=== PATIENT | male | born 1955 | race Caucasian/White ===

== ENCOUNTER 2019-07-10 11:00 | Day surgery (SDC) | payer BC ==
[~2019-07-10] VITALS: Ht 185.4 cm; Wt 109.2 kg
[~2019-07-10 11:00] MED LIST: AMLO5 PO; ASPI325EC; ASPI81CH PO; ASPI81EC PO; ATOR20 PO; Aspir 8181 MG PO; CIPR500 PO; DIAZ2 PO; DIAZ5 PO; Diclofenac Pota50 MG PO; FINA5 PO; HYDACE5 PO; HYDR1TAB94 PO; IBUP200; JANUMET XR 1001 EACH PO; LOVA20 PO; Lipitor20 MG PO; NITR100 PO; OLME20 PO; OXYACE5T PO; OXYB5 PO; Pyridium200 MG PO; RXOXYACE PO; TRAM50 PO; ZOLP10 PO
--- NOTE | 2019-07-10 13:32 | NUR ---
07/10/19 1332 Delmy Lino PT AROUSABLE TO TOUCH AT THIS TIME, PAR SCORE 5
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
== END 2019-07-10 15:34 | disposition home or self-care (01) ==
LOC: ORSCSDS 11:00
PROVIDERS: Orthopaedic Surgery
PROC: 0SBC4ZZ Excision of Right Knee Joint, Percutaneous Endoscopic Approach (ICD-10-PCS; principal; 2019-07-10 12:15)
DX: S83.241A Other tear of medial meniscus, current injury, right knee, initial encounter (principal); I10 Essential (primary) hypertension; G47.33 Obstructive sleep apnea (adult) (pediatric); E11.9 Type 2 diabetes mellitus without complications; Z87.891 Personal history of nicotine dependence; Z79.899 Other long term (current) drug therapy
CPT/HCPCS: 82947; A9270-GY; J0690; J2250; J2704; J3010; J7120

== ENCOUNTER 2020-06-09 22:16 | Emergency (ER) | payer BC ==
[~2020-06-09] VITALS: Ht 185.4 cm; Wt 102.1 kg
[2020-06-10 03:18] LABS: BASOPHILS ABSOLUTE AUTO 0.04 K/mm3 (0.00-0.23); BASOPHILS PERCENT AUTO 1 % (0-2); EOSINOPHILS ABSOLUTE AUTO 0.09 K/mm3 (0.00-0.68); EOSINOPHILS PERCENT AUTO 2 % (0-6); Hematocrit 44.2 % (37.0-53.0); Hemoglobin 14.6 g/dL (13.5-17.5); IMMATURE GRAN ABSOLUTE AUTO 0.01 K/mm3 (0.00-0.10); IMMATURE GRAN PERCENT AUTO 0 % (0-1); LYMPHOCYTES PERCENT AUTO 23 % (21-46); MONOCYTES ABSOLUTE AUTO 0.45 K/mm3 (0.16-1.47); MONOCYTES PERCENT AUTO 9 % (4-13); Mean Corpuscular HGB 32.2 pg (26.0-34.0); Mean Corpuscular Volume 98 fL (80-100); Mean Platelet Volume 10.3 fL (9.1-12.4); NEUTROPHILS ABSOLUTE AUTO 3.34 K/mm3 (1.96-9.15); NEUTROPHILS PERCENT AUTO 65 % (41-73); Platelet Count 177 K/mm3 (150-400); RDW Coefficient Variation 12.6 % (11.7-14.2); RDW Standard Deviation 45.5 fL (35.1-46.3); Red Blood Cell Count 4.53 M/mm3 (4.30-5.90); White Blood Cell Count 5.13 K/mm3 (4.00-11.30)
[2020-06-10 03:39] LABS: Alanine Aminotransfer (ALT/SGP 48 U/L (12-78); Albumin, Blood 3.8 g/dL (3.4-5.0); Albumin/Globulin Ratio 1.1 (0.8-1.8); Alk Phos 90 U/L (50-136); Anion Gap 5 mmol/L (6-16); Aspartate Aminotrans (AST/SGOT 19 U/L (12-37); Bilirubin, Total 0.5 mg/dL (0.1-1.0); Blood Urea Nitrogen 25 mg/dL (8-24); Bun/Creatinine Ratio 19.8 (12.0-20.0); CO2, Blood 26 mmol/L (21-32); CPK Creatine Kinase 161 U/L (39-308); Calcium, Blood 9.1 mg/dL (8.5-10.1); Chloride, Blood 107 mmol/L (98-108); Creatinine, Blood 1.26 mg/dL (0.60-1.20); Globulin, Blood 3.4 g/dL (2.2-4.0); Glomerular Filtration Rate >60 (60-); Glucose, Blood 102 mg/dL (70-99); Potassium, Blood 4.2 mmol/L (3.5-5.5); Sodium, Blood 138 mmol/L (136-145); Total Protein, Blood 7.2 g/dL (6.4-8.2); Troponin I <0.015 ng/mL (0.000-0.040)
== END 2020-06-10 04:10 | disposition home or self-care (01) ==
LOC: ER 22:16
PROVIDERS: Emergency Medicine
DX: R55 Syncope and collapse (principal); I25.10 Atherosclerotic heart disease of native coronary artery without angina pectoris; Z88.8 Allergy status to other drugs, medicaments and biological substances; Z79.82 Long term (current) use of aspirin; Z79.84 Long term (current) use of oral hypoglycemic drugs; Z87.891 Personal history of nicotine dependence; Z79.899 Other long term (current) drug therapy
CPT/HCPCS: 80053; 82550; 84484; 85025; 93005; 93010; 96360; 99284-25; J7030

== ENCOUNTER 2022-05-19 15:26 | Emergency (ER) | payer MEDICARE ==
[~2022-05-19] VITALS: Ht 185.4 cm; Wt 111.6 kg
[2022-05-19 16:13] LABS: BASOPHILS ABSOLUTE AUTO 0.03 K/mm3 (0.00-0.23); BASOPHILS PERCENT AUTO 1 % (0-2); EOSINOPHILS ABSOLUTE AUTO 0.04 K/mm3 (0.00-0.68); EOSINOPHILS PERCENT AUTO 1 % (0-6); Hemoglobin 14.4 g/dL (13.5-17.5); IMMATURE GRAN ABSOLUTE AUTO 0.03 K/mm3 (0.00-0.10); IMMATURE GRAN PERCENT AUTO 1 % (0-1); LYMPHOCYTES ABSOLUTE AUTO 0.74 K/mm3 (0.84-5.20); LYMPHOCYTES PERCENT AUTO 12 % (21-46); MONOCYTES ABSOLUTE AUTO 0.41 K/mm3 (0.16-1.47); MONOCYTES PERCENT AUTO 7 % (4-13); Mean Corpuscular HGB 32.7 pg (26.0-34.0); Mean Corpuscular HGB Conc 34.3 g/dL (31.5-36.5); Mean Corpuscular Volume 96 fL (80-100); Mean Platelet Volume 10.1 fL (9.1-12.4); NEUTROPHILS PERCENT AUTO 80 % (41-73); Platelet Count 191 K/mm3 (150-400); RDW Coefficient Variation 12.3 % (11.7-14.2); RDW Standard Deviation 43.8 fL (35.1-46.3); White Blood Cell Count 6.15 K/mm3 (4.00-11.30)
[2022-05-19 16:28] LABS: Albumin/Globulin Ratio 1.3 (0.8-1.8); Bilirubin, Total 0.4 mg/dL (0.1-1.0); Bun/Creatinine Ratio 20.6 (12.0-20.0); Calcium, Blood 9.1 mg/dL (8.5-10.1); Creatinine, Blood 1.36 mg/dL (0.60-1.20); Globulin, Blood 3.1 g/dL (2.2-4.0); Potassium, Blood 4.4 mmol/L (3.5-5.5); Total Protein, Blood 7.1 g/dL (6.4-8.2)
[2022-05-19] MEDS ORDERED: COMBIVENT RESPIM4 G1 INH (18:36)
[2022-05-19] MEDS ORDERED: JANUMET PO (18:37)
== END 2022-05-19 19:22 | disposition home or self-care (01) ==
LOC: ER 15:26
PROVIDERS: Physician Assistant
DX: R07.9 Chest pain, unspecified (principal); K21.9 Gastro-esophageal reflux disease without esophagitis; I25.10 Atherosclerotic heart disease of native coronary artery without angina pectoris; E11.9 Type 2 diabetes mellitus without complications; I10 Essential (primary) hypertension; F17.210 Nicotine dependence, cigarettes, uncomplicated; Z79.82 Long term (current) use of aspirin; Z79.899 Other long term (current) drug therapy; Z88.8 Allergy status to other drugs, medicaments and biological substances
CPT/HCPCS: 36415; 71045; 80053; 83880; 84484; 85025; 93005; 93010

== ENCOUNTER 2022-07-21 21:28 | Emergency (ER) | payer MEDICARE ==
[~2022-07-21] VITALS: Ht 185.4 cm; Wt 110.7 kg
[~2022-07-21 21:28] MED LIST changes: +COMBIVENT RESPIM4 G1 INH; +JANUMET PO
[2022-07-21 22:10] LABS: BASOPHILS ABSOLUTE AUTO 0.04 K/mm3 (0.00-0.23); BASOPHILS PERCENT AUTO 1 % (0-2); EOSINOPHILS ABSOLUTE AUTO 0.07 K/mm3 (0.00-0.68); EOSINOPHILS PERCENT AUTO 1 % (0-6); Hematocrit 43.8 % (37.0-53.0); Hemoglobin 15.3 g/dL (13.5-17.5); IMMATURE GRAN ABSOLUTE AUTO 0.03 K/mm3 (0.00-0.10); IMMATURE GRAN PERCENT AUTO 0 % (0-1); LYMPHOCYTES ABSOLUTE AUTO 1.04 K/mm3 (0.84-5.20); LYMPHOCYTES PERCENT AUTO 15 % (21-46); MONOCYTES ABSOLUTE AUTO 0.59 K/mm3 (0.16-1.47); MONOCYTES PERCENT AUTO 9 % (4-13); Mean Corpuscular HGB 33.1 pg (26.0-34.0); Mean Corpuscular HGB Conc 34.9 g/dL (31.5-36.5); Mean Corpuscular Volume 95 fL (80-100); Mean Platelet Volume 9.8 fL (9.1-12.4); NEUTROPHILS ABSOLUTE AUTO 5.09 K/mm3 (1.96-9.15); NEUTROPHILS PERCENT AUTO 74 % (41-73); Platelet Count 190 K/mm3 (150-400); RDW Coefficient Variation 12.5 % (11.7-14.2); RDW Standard Deviation 43.2 fL (35.1-46.3); Red Blood Cell Count 4.62 M/mm3 (4.30-5.90); White Blood Cell Count 6.86 K/mm3 (4.00-11.30)
[2022-07-21 22:28] LABS: Albumin, Blood 3.9 g/dL (3.4-5.0); Albumin/Globulin Ratio 1.1 (0.8-1.8); Bilirubin, Total 0.4 mg/dL (0.1-1.0); Bun/Creatinine Ratio 22.1 (12.0-20.0); Calcium, Blood 9.7 mg/dL (8.5-10.1); Creatinine, Blood 1.13 mg/dL (0.60-1.20); Globulin, Blood 3.5 g/dL (2.2-4.0); Total Protein, Blood 7.4 g/dL (6.4-8.2)
[2022-07-21] MEDS ORDERED: CIME400 PO (22:57)
== END 2022-07-21 23:08 | disposition home or self-care (01) ==
LOC: ER 21:28
PROVIDERS: Physician Assistant
DX: K21.9 Gastro-esophageal reflux disease without esophagitis (principal); I10 Essential (primary) hypertension; E11.9 Type 2 diabetes mellitus without complications; I25.10 Atherosclerotic heart disease of native coronary artery without angina pectoris; Z87.891 Personal history of nicotine dependence; Z88.8 Allergy status to other drugs, medicaments and biological substances; Z79.899 Other long term (current) drug therapy; Z79.82 Long term (current) use of aspirin
CPT/HCPCS: 36415; 71046; 80053; 83690; 83880; 84484; 85025; 93005; 93010; 99284-25

== ENCOUNTER 2022-08-07 07:28 | Day surgery (SDC) | payer MEDICARE ==
[~2022-08-07] VITALS: Ht 185.4 cm; Wt 107.6 kg
[~2022-08-07 07:28] MED LIST changes: +CIME400 PO; +TOUJEO SOL300 UNIT/2 SQ
--- NOTE | 2022-08-07 09:19 | NUR ---
08/07/22 0919 Galindo Goddard HISTORY, CHART, MEDICATIONS AND ALLERGIES REVIEWED BEFORE START OF PROCEDURE. PATIENT CONFIRMS NPO STATUS AND AGREES WITH SCHEDULED PROCEDURE. 3-LEAD EKG REVIEWED WITH PHYSICIAN PRIOR TO START OF PROCEDURE. MONITOR INTACT WITH CONTINUOUS PULSE OXIMETRY,CAPNOGRAPHY, 3-LEAD EKG, INTERMITTENT BP. SUPPLEMENTAL O2 TO BE TITRATED THROUGHOUT PROCEDURE TO MAINTAIN O2 SATURATION ABOVE 90%. PATIENT DETERMINED TO BE ASA APPROPRIATE FOR PROPOFOL SEDATION PRIOR TO START OF PROCEDURE BY DR. ANDREW.
--- NOTE | 2022-08-07 10:01 | NUR ---
Discharge instructions reviewed with patient. Patient verbalizes understanding. Copy given to patient to take home. Discharged via wheelchair to private car for ride home.
== END 2022-08-07 10:00 | disposition home or self-care (01) ==
LOC: ORSCMMR 07:28 → ORD 09:30 → ORSCMMR 10:00
PROVIDERS: Internal Medicine Gastroenterology
PROC: 0DB68ZX Excision of Stomach, Via Natural or Artificial Opening Endoscopic, Diagnostic (ICD-10-PCS; principal; 2022-08-07 08:30)
PROC: 0DB48ZX Excision of Esophagogastric Junction, Via Natural or Artificial Opening Endoscopic, Diagnostic (ICD-10-PCS; principal; 2022-08-07 08:30)
PROC: 0DB98ZX Excision of Duodenum, Via Natural or Artificial Opening Endoscopic, Diagnostic (ICD-10-PCS; principal; 2022-08-07 08:30)
DX: R10.13 Epigastric pain (principal); E11.9 Type 2 diabetes mellitus without complications; I10 Essential (primary) hypertension; K29.70 Gastritis, unspecified, without bleeding; K21.9 Gastro-esophageal reflux disease without esophagitis; E78.00 Pure hypercholesterolemia, unspecified; E66.9 Obesity, unspecified; Z68.30 Body mass index [BMI] 30.0-30.9, adult; Z79.82 Long term (current) use of aspirin; Z79.4 Long term (current) use of insulin; Z79.85 Long-term (current) use of injectable non-insulin antidiabetic drugs; Z79.899 Other long term (current) drug therapy
CPT/HCPCS: 82947; 88305; 88342; A9270; J2704; J7120

== ENCOUNTER 2022-08-10 18:37 | Emergency (ER) | payer MEDICARE ==
[~2022-08-10] VITALS: Ht 185.4 cm; Wt 108.9 kg
[2022-08-10 19:13] LABS: BASOPHILS ABSOLUTE AUTO 0.04 K/mm3 (0.00-0.23); BASOPHILS PERCENT AUTO 1 % (0-2); EOSINOPHILS ABSOLUTE AUTO 0.11 K/mm3 (0.00-0.68); EOSINOPHILS PERCENT AUTO 2 % (0-6); Hematocrit 43.7 % (37.0-53.0); IMMATURE GRAN ABSOLUTE AUTO 0.03 K/mm3 (0.00-0.10); IMMATURE GRAN PERCENT AUTO 1 % (0-1); LYMPHOCYTES ABSOLUTE AUTO 0.97 K/mm3 (0.84-5.20); LYMPHOCYTES PERCENT AUTO 19 % (21-46); MONOCYTES ABSOLUTE AUTO 0.49 K/mm3 (0.16-1.47); MONOCYTES PERCENT AUTO 10 % (4-13); Mean Corpuscular HGB 32.8 pg (26.0-34.0); Mean Corpuscular HGB Conc 34.3 g/dL (31.5-36.5); Mean Corpuscular Volume 96 fL (80-100); Mean Platelet Volume 9.9 fL (9.1-12.4); NEUTROPHILS ABSOLUTE AUTO 3.49 K/mm3 (1.96-9.15); NEUTROPHILS PERCENT AUTO 68 % (41-73); Platelet Count 166 K/mm3 (150-400); RDW Coefficient Variation 12.1 % (11.7-14.2); RDW Standard Deviation 42.5 fL (35.1-46.3); Red Blood Cell Count 4.57 M/mm3 (4.30-5.90); White Blood Cell Count 5.13 K/mm3 (4.00-11.30)
[2022-08-10 19:32] LABS: Albumin/Globulin Ratio 1.2 (0.8-1.8); Bilirubin, Total 0.5 mg/dL (0.1-1.0); Bun/Creatinine Ratio 16.2 (12.0-20.0); Calcium, Blood 9.1 mg/dL (8.5-10.1); Creatinine, Blood 1.17 mg/dL (0.60-1.20); Globulin, Blood 3.3 g/dL (2.2-4.0); Potassium, Blood 4.3 mmol/L (3.5-5.5); Total Protein, Blood 7.3 g/dL (6.4-8.2)
== END 2022-08-10 22:57 | disposition home or self-care (01) ==
LOC: ER 18:37
PROVIDERS: Anesthesiology
DX: G45.9 Transient cerebral ischemic attack, unspecified (principal); I25.10 Atherosclerotic heart disease of native coronary artery without angina pectoris; E11.9 Type 2 diabetes mellitus without complications; I10 Essential (primary) hypertension; Z88.8 Allergy status to other drugs, medicaments and biological substances; Z79.899 Other long term (current) drug therapy; Z79.4 Long term (current) use of insulin; Z79.82 Long term (current) use of aspirin; Z87.891 Personal history of nicotine dependence
CPT/HCPCS: 36415; 70450; 80053; 85025; 93005; 93010

== ENCOUNTER 2022-08-12 13:24 | Emergency (ER) | payer MEDICARE ==
[~2022-08-12] VITALS: Ht 185.4 cm; Wt 106.6 kg
== END 2022-08-12 16:19 | disposition home or self-care (01) ==
LOC: ER 13:24
DX: M54.10 Radiculopathy, site unspecified (principal); F41.9 Anxiety disorder, unspecified; I10 Essential (primary) hypertension; E11.9 Type 2 diabetes mellitus without complications; I25.10 Atherosclerotic heart disease of native coronary artery without angina pectoris; F17.210 Nicotine dependence, cigarettes, uncomplicated; Z88.8 Allergy status to other drugs, medicaments and biological substances; Z79.899 Other long term (current) drug therapy; Z79.82 Long term (current) use of aspirin; Z79.4 Long term (current) use of insulin
CPT/HCPCS: 99283

== ENCOUNTER 2024-02-06 08:34 | Day surgery (SDC) | payer MEDICARE ==
[~2024-02-06] VITALS: Ht 185.4 cm; Wt 117.0 kg
[2024-02-06] VITALS (21 sets, daily range): BP systolic 80–161; BP diastolic 57–90
[~2024-02-06 08:34] MED LIST changes: +ESCI10 PO; +Lactated Ringer's 1,000 ML IV SCH; +METF500 PO; +MULVITA PO; +Vitamin B Comple1 EA PO
--- NOTE | 2024-02-06 09:20 | NUR ---
History, Chart, Medications and Allergies reviewed before start of procedure. Patient up to Ambulate independently. Gait steady. Pre-Op teaching done. Pt verbalizes understanding. Patient confirms NPO status and agrees with scheduled surgery. Patient states colon prep results light yellow without sediment. Patient States Post-Procedure ride home has been arranged.
[2024-02-06] MEDS ORDERED: propofoL 40 ML IV ONE (09:48)
--- NOTE | 2024-02-06 09:57 | NUR ---
02/06/24 0957 Galindo Goddard HISTORY, CHART, MEDICATIONS AND ALLERGIES REVIEWED BEFORE START OF PROCEDURE. PATIENT CONFIRMS NPO STATUS AND AGREES WITH SCHEDULED PROCEDURE. 3-LEAD EKG REVIEWED WITH PHYSICIAN PRIOR TO START OF PROCEDURE. MONITOR INTACT WITH CONTINUOUS PULSE OXIMETRY,CAPNOGRAPHY, 3-LEAD EKG, INTERMITTENT BP. SUPPLEMENTAL O2 TO BE TITRATED THROUGHOUT PROCEDURE TO MAINTAIN O2 SATURATION ABOVE 90%. PATIENT DETERMINED TO BE ASA APPROPRIATE FOR PROPOFOL SEDATION PRIOR TO START OF PROCEDURE BY DR. ANDREW.
== END 2024-02-06 11:00 | disposition home or self-care (01) ==
LOC: ORSCMMR 08:34 → ORD 09:30 → ORSCMMR 11:00
PROVIDERS: Internal Medicine Gastroenterology
PROC: 0DBN8ZX Excision of Sigmoid Colon, Via Natural or Artificial Opening Endoscopic, Diagnostic (ICD-10-PCS; principal; 2024-02-06 09:30)
PROC: 0DBK8ZX Excision of Ascending Colon, Via Natural or Artificial Opening Endoscopic, Diagnostic (ICD-10-PCS; principal; 2024-02-06 09:30)
DX: K62.5 Hemorrhage of anus and rectum (principal); K63.5 Polyp of colon; D12.2 Benign neoplasm of ascending colon; I10 Essential (primary) hypertension; E11.9 Type 2 diabetes mellitus without complications; F41.9 Anxiety disorder, unspecified; E78.00 Pure hypercholesterolemia, unspecified; Z79.82 Long term (current) use of aspirin; Z79.85 Long-term (current) use of injectable non-insulin antidiabetic drugs; Z79.84 Long term (current) use of oral hypoglycemic drugs; Z79.899 Other long term (current) drug therapy
CPT/HCPCS: 82947; 88305; J2704; J7120

== ENCOUNTER 2025-02-11 09:31 | Day surgery (SDC) | payer OTHER ==
[~2025-02-11] VITALS: Ht 188 cm; Wt 115.2 kg
[~2025-02-11 09:31] MED LIST changes: +Balanced Salt Epinephrine Irrigation Solution 500 mL IR SCH; +Diazepam 5 MG Tab PO PRN; +Diazepam 5 MG Tab PO SCH; -Lactated Ringer's 1,000 ML IV SCH; +Lidocaine HCl/Pf 1% 5 ML VIAL XX SCH; +Moxifloxacin HCL 0.5 MG/0.1 ML 0.4MLSYR LEFTEYE SCH; +Ondansetron 4 MG SoluTab MM PRN; +PHENYLEPHRINE\\TROPICAMIDE\\TETRACAINE OPHTHALMIC DILATING SOLN LEFTEYE PRN; +Povidone-Iodine 450 DROP/30 ML Solution LEFTEYE SCH; +Povidone-Iodine 450 DROP/30 ML Solution ONE; +Tetracaine HCl/Pf 0.5% Opth Soln 4 ml ONE; +Triamcinolone Inj Susp 40 MG / ML 1ML Vial INJ SCH; +Triamcinolone Inj Susp 40 MG / ML 1ML Vial ONE
[2025-02-11] MEDS ORDERED: Diazepam 10 MG Tab ONE (09:39)
--- NOTE | 2025-02-11 09:51 | NUR ---
02/11/25 0950 Genesis Carlson PT STATES ANXIETY IS 0/10 BEFORE PO VALIUM 10MG. PT ON CONT PULSE OX. CALL LIGHT IN HAND
[2025-02-11] MEDS ORDERED: PAXLOVID 300-11 EAC1 (09:52)
[2025-02-11] MEDS ORDERED: OZEMPIC1 MG/0.72 (09:52)
--- NOTE | 2025-02-11 10:51 | NUR ---
02/11/25 1051 Laura Frazier 1046 BP 132/77, HR 67, O2% 96 RA, 16 RESP
[2025-02-11 11:31] VITALS: BP 128/72
== END 2025-02-11 11:27 | disposition home or self-care (01) ==
LOC: ORSCSDS 09:31
PROVIDERS: Ophthalmology
PROC: 08RK3JZ Replacement of Left Lens with Synthetic Substitute, Percutaneous Approach (ICD-10-PCS; principal; 2025-02-11 11:00)
DX: H25.813 Combined forms of age-related cataract, bilateral (principal); E11.36 Type 2 diabetes mellitus with diabetic cataract; Z79.85 Long-term (current) use of injectable non-insulin antidiabetic drugs; Z79.82 Long term (current) use of aspirin; Z79.899 Other long term (current) drug therapy
CPT/HCPCS: A9270; J3301; V2632

== ENCOUNTER 2025-02-18 09:34 | Day surgery (SDC) | payer OTHER ==
[~2025-02-18] VITALS: Ht 185.4 cm; Wt 115.4 kg
[~2025-02-18 09:34] MED LIST changes: -Moxifloxacin HCL 0.5 MG/0.1 ML 0.4MLSYR LEFTEYE SCH; +Moxifloxacin HCL 0.5 MG/0.1 ML 0.4MLSYR RIGHTEYE SCH; +OZEMPIC1 MG/0.72; +PAXLOVID 300-11 EAC1; -PHENYLEPHRINE\\TROPICAMIDE\\TETRACAINE OPHTHALMIC DILATING SOLN LEFTEYE PRN; +PHENYLEPHRINE\\TROPICAMIDE\\TETRACAINE OPHTHALMIC DILATING SOLN RIGHTEYE PRN; -Povidone-Iodine 450 DROP/30 ML Solution LEFTEYE SCH; +Povidone-Iodine 450 DROP/30 ML Solution RIGHTEYE SCH
[2025-02-18] MEDS ORDERED: Diazepam 10 MG Tab ONE (09:45)
--- NOTE | 2025-02-18 10:17 | NUR ---
02/18/25 1017 JENS SALAZAR RESTING ON GURNEY, CALL LIGHT IN HAND, RAILS UP, BRAKES LOCKED
--- NOTE | 2025-02-18 11:15 | NUR ---
02/18/25 1114 Nataliya Martin BP-135/77 P-61 [id number]% 10L BLOW BY O2
[2025-02-18 11:52] VITALS: BP 129/75
== END 2025-02-18 11:45 | disposition home or self-care (01) ==
LOC: ORSCSDS 09:34
PROVIDERS: Ophthalmology
PROC: 08RJ3JZ Replacement of Right Lens with Synthetic Substitute, Percutaneous Approach (ICD-10-PCS; principal; 2025-02-18 11:00)
DX: E11.36 Type 2 diabetes mellitus with diabetic cataract (principal); H25.811 Combined forms of age-related cataract, right eye; Z96.1 Presence of intraocular lens; Z79.899 Other long term (current) drug therapy; Z79.4 Long term (current) use of insulin; Z79.82 Long term (current) use of aspirin; Z79.85 Long-term (current) use of injectable non-insulin antidiabetic drugs; Z79.84 Long term (current) use of oral hypoglycemic drugs
CPT/HCPCS: A9270; J3301; V2632

== ENCOUNTER → 2025-02-24 | Outpatient (CLI) | payer OTHER ==
[~2025-02-24] MED LIST changes: -Balanced Salt Epinephrine Irrigation Solution 500 mL IR SCH; -Diazepam 5 MG Tab PO PRN; -Diazepam 5 MG Tab PO SCH; -Lidocaine HCl/Pf 1% 5 ML VIAL XX SCH; -Moxifloxacin HCL 0.5 MG/0.1 ML 0.4MLSYR RIGHTEYE SCH; -Ondansetron 4 MG SoluTab MM PRN; -PHENYLEPHRINE\\TROPICAMIDE\\TETRACAINE OPHTHALMIC DILATING SOLN RIGHTEYE PRN; -Povidone-Iodine 450 DROP/30 ML Solution ONE; -Povidone-Iodine 450 DROP/30 ML Solution RIGHTEYE SCH; -Tetracaine HCl/Pf 0.5% Opth Soln 4 ml ONE; -Triamcinolone Inj Susp 40 MG / ML 1ML Vial INJ SCH; -Triamcinolone Inj Susp 40 MG / ML 1ML Vial ONE
[2025-02-24 13:43] LABS: BASOPHILS ABSOLUTE AUTO 0.07 K/mm3 (0.00-0.23); BASOPHILS PERCENT AUTO 1 % (0-2); EOSINOPHILS PERCENT AUTO 1 % (0-6); Hematocrit 47.1 % (37.0-53.0); Hemoglobin 16.2 g/dL (13.5-17.5); IMMATURE GRAN ABSOLUTE AUTO 0.04 K/mm3 (0.00-0.10); IMMATURE GRAN PERCENT AUTO 0 % (0-1); LYMPHOCYTES ABSOLUTE AUTO 0.66 K/mm3 (0.84-5.20); LYMPHOCYTES PERCENT AUTO 6 % (21-46); MONOCYTES ABSOLUTE AUTO 0.62 K/mm3 (0.16-1.47); MONOCYTES PERCENT AUTO 6 % (4-13); Mean Corpuscular HGB Conc 34.4 g/dL (31.5-36.5); Mean Corpuscular Volume 96 fL (80-100); NEUTROPHILS ABSOLUTE AUTO 9.62 K/mm3 (1.96-9.15); NEUTROPHILS PERCENT AUTO 87 % (41-73); Platelet Count 170 K/mm3 (150-400); RDW Coefficient Variation 12.8 % (11.7-14.2); RDW Standard Deviation 45.2 fL (35.1-46.3); Red Blood Cell Count 4.91 M/mm3 (4.30-5.90); White Blood Cell Count 11.11 K/mm3 (4.00-11.30)
[2025-02-24 13:53] LABS: Albumin, Blood 4.5 g/dL (3.4-5.0); Albumin/Globulin Ratio 1.1 (0.8-1.8); Bilirubin, Total 0.8 mg/dL (0.1-1.0); Bun/Creatinine Ratio 19.2 (12.0-20.0); Calcium, Blood 9.4 mg/dL (8.5-10.1); Creatinine, Blood 1.77 mg/dL (0.60-1.20); Globulin, Blood 4.1 g/dL (2.2-4.0); Potassium, Blood 5.1 mmol/L (3.5-5.5); Total Protein, Blood 8.6 g/dL (6.4-8.2)
== END ==
LOC: LAB 13:38 → LAB SHORT 13:38
PROVIDERS: Family Medicine
DX: N39.0 Urinary tract infection, site not specified (principal); R31.9 Hematuria, unspecified
CPT/HCPCS: 80053; 85025; 87077; 87086; 87186

== ENCOUNTER 2025-05-10 09:45 | Day surgery (SDC) | payer OTHER ==
[~2025-05-10] VITALS: Ht 186 cm; Wt 112.9 kg
[2025-05-10] VITALS (13 sets, daily range): BP systolic 81–147; BP diastolic 55–87
[~2025-05-10 09:45] MED LIST changes: +LORA10ER PO
--- NOTE | 2025-05-10 11:10 | NUR ---
Ambulatory in Day Surgery History, Chart, Medications and Allergies reviewed before start of procedure.Patient states colon prep results clear. Lungs clear T/O to Auscultation. Patient States Post-Procedure ride home has been arranged.
--- NOTE | 2025-05-10 11:20 | NUR ---
05/10/25 1120 Erasmo Prabhakar CONFIRMED AND REVIEWED H&P, MEDCICATIONS, ALLERGIES, MEDICAL HISTORY, RESPIRATORY HISTORY, VITAL SIGNS, 3-LEAD EKG, CONSENTS, AND PHYSICIAN ORDERS. PATIENT CONFIRMS NPO STATUS AND AGREES WITH SCHEDULED PROCEDURE. MONITOR INTACT WITH CONTINUOUS PULSE OXIMETRY, CAPNOGRAPHY, 3-LEAD EKG, INTERMITTENT BP. SUPPLEMENTAL O2 TO BE TITRATED THROUGHOUT PROCEDURE TO MAINTAIN O2 SATURATION ABOVE 90%. PATIENT DETERMINED TO BE ASA APPROPRIATE FOR PROPOFOL SEDATION PRIOR TO START OF PROCEDURE BY DR. ANDREW
[2025-05-10] MEDS ORDERED: Midazolam HCl 1MG / ML 2ML Vial ONE (11:29)
--- NOTE | 2025-05-10 11:56 | NUR ---
Discharge instructions reviewed with patient. Patient verbalizes understanding. Copy given to patient to take home. Discharged via wheelchair to private car for ride home.
== END 2025-05-10 12:21 | disposition home or self-care (01) ==
LOC: ORSCMMR 09:45 → ORD 10:30 → ORSCMMR 12:21
PROVIDERS: Internal Medicine Gastroenterology
PROC: 0DBP8ZX Excision of Rectum, Via Natural or Artificial Opening Endoscopic, Diagnostic (ICD-10-PCS; principal; 2025-05-10 10:30)
DX: D12.4 Benign neoplasm of descending colon (principal); K62.1 Rectal polyp; Z80.0 Family history of malignant neoplasm of digestive organs; F41.9 Anxiety disorder, unspecified; N40.0 Benign prostatic hyperplasia without lower urinary tract symptoms; E11.9 Type 2 diabetes mellitus without complications; I10 Essential (primary) hypertension; E78.00 Pure hypercholesterolemia, unspecified; Z79.82 Long term (current) use of aspirin; Z79.84 Long term (current) use of oral hypoglycemic drugs; Z79.85 Long-term (current) use of injectable non-insulin antidiabetic drugs; Z79.899 Other long term (current) drug therapy
CPT/HCPCS: 82947; 88305; J2250; J2704; J7120

== ENCOUNTER 2025-09-29 16:47 | Observation (INO) | payer OTHER ==
[~2025-09-29] VITALS: Ht 185.4 cm; Wt 110.8 kg
[~2025-09-29 16:47] MED LIST changes: +AMOCLA875 PO
[2025-09-29 17:43] LABS: Source, Urine Clean Catch
[2025-09-29 17:48] LABS: Color, Urine Red (P-Yellow); Glucose Qualitative, Urine Neg (Neg); Ketones, Urine 2+ (Neg); Leukocyte Esterase, Urine Neg (Neg); Protein, Urine 4+ (Neg); Specific Gravity, Urine 1.015 (1.003-1.022); Urobilinogen, Urine NORM (Normal)
[2025-09-29 17:48] LABS: BASOPHILS ABSOLUTE AUTO 0.05 K/mm3 (0.00-0.23); BASOPHILS PERCENT AUTO 1 % (0-2); EOSINOPHILS ABSOLUTE AUTO 0.12 K/mm3 (0.00-0.68); EOSINOPHILS PERCENT AUTO 2 % (0-6); Hematocrit 49.9 % (37.0-53.0); Hemoglobin 16.8 g/dL (13.5-17.5); IMMATURE GRAN ABSOLUTE AUTO 0.03 K/mm3 (0.00-0.10); IMMATURE GRAN PERCENT AUTO 0 % (0-1); LYMPHOCYTES ABSOLUTE AUTO 1.38 K/mm3 (0.84-5.20); LYMPHOCYTES PERCENT AUTO 20 % (21-46); MONOCYTES ABSOLUTE AUTO 0.82 K/mm3 (0.16-1.47); MONOCYTES PERCENT AUTO 12 % (4-13); Mean Corpuscular HGB Conc 33.7 g/dL (31.5-36.5); Mean Corpuscular Volume 99 fL (80-100); NEUTROPHILS ABSOLUTE AUTO 4.39 K/mm3 (1.96-9.15); NEUTROPHILS PERCENT AUTO 65 % (41-73); NRBC ABSOLUTE 0.00 K/mm3 (0.00-0.02); NRBC Auto 0.0 /100 WBC (0.0-0.2); Platelet Count 158 K/mm3 (150-400); RDW Coefficient Variation 12.2 % (11.7-14.2); RDW Standard Deviation 45.0 fL (35.1-46.3)
[2025-09-29 17:57] LABS: Bilirubin, Urine 1+ (Neg)
[2025-09-29 17:59] LABS: Red Blood Cells, Urine TNTC /hpf (0-2); White Blood Cells, Urine 0-2 /hpf (0-5)
[2025-09-29] MEDS ORDERED: NS 1,000 ML IV SCH (18:40)
[2025-09-29 19:11] LABS: Alanine Aminotransfer (ALT/SGP 108.0 U/L (12-78); Albumin, Blood 4.2 g/dL (3.4-5.0); Albumin/Globulin Ratio 1.1 (0.8-1.8); Anion Gap 15.0 mmol/L (3-11); Aspartate Aminotrans (AST/SGOT 53.0 U/L (12-37); Bilirubin, Total 0.4 mg/dL (0.1-1.0); Blood Urea Nitrogen 30.0 mg/dL (8-24); CO2, Blood 16.0 mmol/L (21-32); Calcium, Blood 8.9 mg/dL (8.5-10.1); Chloride, Blood 108.0 mmol/L (98-108); Creatinine, Blood 1.85 mg/dL (0.60-1.20); Globulin, Blood 3.8 g/dL (2.2-4.0); Glucose, Blood 293.0 mg/dL (70-99); Potassium, Blood 6.2 mmol/L (3.5-5.5); Sodium, Blood 133.0 mmol/L (136-145); Total Protein, Blood 8.0 g/dL (6.4-8.2)
[2025-09-29] MEDS ORDERED: Calcium Gluconate 10% 1,000 MG in NS 50 ML IV ONE (19:45)
[2025-09-29] MEDS ORDERED: Albuterol 2.5 MG/3 ML VIAL INH SCH (19:45)
[2025-09-29 20:14] LABS: pH Blood Venous 7.30 (7.34-7.37)
[2025-09-29] MEDS ORDERED: Insulin Regular 100 Unit/ML 1ML Dose IV ONE (20:20)
[2025-09-29] MEDS ORDERED: CALCIUM GLUC IN NACL, ISO-OSM 50 ML IV ONE (21:00)
[2025-09-29] MEDS ORDERED: FLU VACC TS2025(65UP)/MF59C/PF 45 MCG/0.5 ML SYRINGE IM SCH (22:15)
[2025-09-29] MEDS ORDERED: Ondansetron HCl 2 MG / ML 2ML Vial IV PRN (22:20)
[2025-09-29 22:55] LABS: Albumin, Blood 3.6 g/dL (3.4-5.0); Anion Gap 11 mmol/L (3-11); Blood Urea Nitrogen 32 mg/dL (8-24); CO2, Blood 21 mmol/L (21-32); Calcium, Blood 8.7 mg/dL (8.5-10.1); Chloride, Blood 110 mmol/L (98-108); Creatinine, Blood 1.78 mg/dL (0.60-1.20); Glucose, Blood 229 mg/dL (70-99); Phosphorus, Blood 1.9 mg/dL (2.5-4.9); Potassium, Blood 5.1 mmol/L (3.5-5.5); Sodium, Blood 137 mmol/L (136-145)
[2025-09-29 23:22] VITALS: BP 117/72
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
[2025-09-30 03:32] VITALS: BP 116/70
[2025-09-30 04:03] LABS: BASOPHILS ABSOLUTE AUTO 0.02 K/mm3 (0.00-0.23); BASOPHILS PERCENT AUTO 1 % (0-2); EOSINOPHILS ABSOLUTE AUTO 0.05 K/mm3 (0.00-0.68); EOSINOPHILS PERCENT AUTO 1 % (0-6); Hematocrit 38.7 % (37.0-53.0); Hemoglobin 13.4 g/dL (13.5-17.5); IMMATURE GRAN ABSOLUTE AUTO 0.02 K/mm3 (0.00-0.10); IMMATURE GRAN PERCENT AUTO 1 % (0-1); LYMPHOCYTES ABSOLUTE AUTO 1.19 K/mm3 (0.84-5.20); LYMPHOCYTES PERCENT AUTO 30 % (21-46); MONOCYTES ABSOLUTE AUTO 0.55 K/mm3 (0.16-1.47); MONOCYTES PERCENT AUTO 14 % (4-13); Mean Corpuscular HGB Conc 34.6 g/dL (31.5-36.5); Mean Corpuscular Volume 97 fL (80-100); NEUTROPHILS ABSOLUTE AUTO 2.17 K/mm3 (1.96-9.15); NEUTROPHILS PERCENT AUTO 54 % (41-73); NRBC ABSOLUTE 0.00 K/mm3 (0.00-0.02); NRBC Auto 0.0 /100 WBC (0.0-0.2); Platelet Count 118 K/mm3 (150-400); RDW Coefficient Variation 12.1 % (11.7-14.2); RDW Standard Deviation 43.1 fL (35.1-46.3)
[2025-09-30 04:33] LABS: Alanine Aminotransfer (ALT/SGP 84.0 U/L (12-78); Albumin, Blood 3.4 g/dL (3.4-5.0); Albumin/Globulin Ratio 1.1 (0.8-1.8); Anion Gap 9.0 mmol/L (3-11); Aspartate Aminotrans (AST/SGOT 36.0 U/L (12-37); Bilirubin, Total 0.4 mg/dL (0.1-1.0); Blood Urea Nitrogen 31.0 mg/dL (8-24); CO2, Blood 21.0 mmol/L (21-32); Calcium, Blood 8.8 mg/dL (8.5-10.1); Chloride, Blood 111.0 mmol/L (98-108); Creatinine, Blood 1.5 mg/dL (0.60-1.20); Globulin, Blood 3.2 g/dL (2.2-4.0); Glucose, Blood 143.0 mg/dL (70-99); Magnesium, Blood 1.6 mg/dL (1.6-2.4); Potassium, Blood 4.4 mmol/L (3.5-5.5); Sodium, Blood 137.0 mmol/L (136-145); Total Protein, Blood 6.6 g/dL (6.4-8.2)
[2025-09-30] MEDS ORDERED: Insulin Human Lispro 100 Units/ML 3ML Syringe SC SCH ×3 (07:30→17:30)
[2025-09-30 09:10] VITALS: BP 134/94
--- NOTE | 2025-09-30 11:14 | NUR ---
REPORT GIVEN TO ALPESH, MEDICAL FLOOR RN, PT TO BE TRANSFERRED TO 364.
[2025-09-30] MEDS ORDERED: Insulin Glargine-Yfgn 100 Unit/mL 3 ML SYR SC SCH ×2 (14:00)
[2025-09-30 14:46] LABS: Anion Gap 10.0 mmol/L (3-11); Blood Urea Nitrogen 26.0 mg/dL (8-24); CO2, Blood 21.0 mmol/L (21-32); Calcium, Blood 8.5 mg/dL (8.5-10.1); Chloride, Blood 110.0 mmol/L (98-108); Creatinine, Blood 1.34 mg/dL (0.60-1.20); Glucose, Blood 208.0 mg/dL (70-99); Potassium, Blood 5.3 mmol/L (3.5-5.5); Sodium, Blood 136.0 mmol/L (136-145)
[2025-09-30 16:05] VITALS: BP 150/86
--- NOTE | 2025-09-30 18:55 | NUR ---
TRANSFER OF CARE: PATIENT CARE TRANSFERRED TO ANALI SARMIENTO. PT A7O X4; CALM AND COOPERATIVE WITH CARE. NO C/O PAIN. BED LOW & LOCKED; CALL LIGHT WITHIN REACH. REPORT GIVEN TO ANALI SARMIENTO.
[2025-09-30 19:31] VITALS: BP 130/69
--- NOTE | 2025-09-30 20:55 | NUR ---
SUMMARY- THIS RN TOOK OVER PT CARE APPROX 1800. PT A/O X4, USES CALL LIGHT AND KNOWS LIMITS. HAS BEEN IN HIS BED ALL DAY, ADJUSTS HIS WEIGHT NEEDED. LR RUNNING AT 100ML/HR, LITER WILL FINISH AROUND 1999. PT DENIES PAIN. TOLERATING FOOD AND FLUID. LOKELMA WITH ALL MEALS. BLOOD SUGARS AC/HS WITH SSI. NEW ORDER FOR HUMALOG 10UNITS WITH MEALS. BECAUSE OF RN CHANGE AT 1800, MISSED DOSE AT DINNER TIME. HELD THE 10UNITS ORDERED, CONSULTING WITH CHARGE SATISH, ESPECIALLY IN THE LIGHT OF LONG ACTING BEING STARTED 1430 TODAY. NOC RN SIMA NOTIFIED OF THESE HAPPENINGS. KCL WILL BE RECHECKED AT 2100 TONIGHT. KCL LEVELS COMING DOWN WELL LACTIC. ENC TO DRINK FLUIDS. DENIES NAUSEA. VSS.
[2025-09-30 21:25] LABS: Anion Gap 8.0 mmol/L (3-11); Blood Urea Nitrogen 23.0 mg/dL (8-24); CO2, Blood 22.0 mmol/L (21-32); Calcium, Blood 8.5 mg/dL (8.5-10.1); Chloride, Blood 108.0 mmol/L (98-108); Creatinine, Blood 1.26 mg/dL (0.60-1.20); Glucose, Blood 258.0 mg/dL (70-99); Potassium, Blood 4.3 mmol/L (3.5-5.5); Sodium, Blood 134.0 mmol/L (136-145)
[2025-09-30 23:33] VITALS: BP 121/74
[2025-10-01 04:21] VITALS: BP 113/74
--- NOTE | 2025-10-01 06:00 | NUR ---
SHIFT SUMMARY PT IS A&OX4, PLEASANT AND COOPERATIVE WITH CARE. HOWEVER CONFUSED AT TIMES AND REASKS THE SAME QUESTION OCCASSIONALLY. PT REPORTED HEADACHE THIS SHIFT, MEDICATED PER EMAR. NO ACUTE CHANGES. PT RESTED T/O SHIFT WITH EVEN AND UNLABORED RESPIRATIONS, BED IN THE LOWEST POSITION, AND CALL LIGHT IN REACH.
[2025-10-01 06:27] LABS: BASOPHILS ABSOLUTE AUTO 0.02 K/mm3 (0.00-0.23); BASOPHILS PERCENT AUTO 1 % (0-2); EOSINOPHILS ABSOLUTE AUTO 0.11 K/mm3 (0.00-0.68); EOSINOPHILS PERCENT AUTO 3 % (0-6); Hematocrit 41.0 % (37.0-53.0); Hemoglobin 14.2 g/dL (13.5-17.5); IMMATURE GRAN ABSOLUTE AUTO 0.01 K/mm3 (0.00-0.10); IMMATURE GRAN PERCENT AUTO 0 % (0-1); LYMPHOCYTES ABSOLUTE AUTO 1.59 K/mm3 (0.84-5.20); LYMPHOCYTES PERCENT AUTO 37 % (21-46); MONOCYTES ABSOLUTE AUTO 0.44 K/mm3 (0.16-1.47); MONOCYTES PERCENT AUTO 10 % (4-13); Mean Corpuscular HGB Conc 34.6 g/dL (31.5-36.5); Mean Corpuscular Volume 97 fL (80-100); NEUTROPHILS ABSOLUTE AUTO 2.11 K/mm3 (1.96-9.15); NEUTROPHILS PERCENT AUTO 49 % (41-73); NRBC ABSOLUTE 0.00 K/mm3 (0.00-0.02); NRBC Auto 0.0 /100 WBC (0.0-0.2); Platelet Count 121 K/mm3 (150-400); RDW Coefficient Variation 12.0 % (11.7-14.2); RDW Standard Deviation 43.2 fL (35.1-46.3)
[2025-10-01 06:37] LABS: Alanine Aminotransfer (ALT/SGP 81.0 U/L (12-78); Albumin, Blood 3.6 g/dL (3.4-5.0); Albumin/Globulin Ratio 1.1 (0.8-1.8); Anion Gap 10.0 mmol/L (3-11); Aspartate Aminotrans (AST/SGOT 38.0 U/L (12-37); Bilirubin, Total 0.5 mg/dL (0.1-1.0); Blood Urea Nitrogen 23.0 mg/dL (8-24); CO2, Blood 23.0 mmol/L (21-32); Calcium, Blood 9.0 mg/dL (8.5-10.1); Chloride, Blood 109.0 mmol/L (98-108); Creatinine, Blood 1.2 mg/dL (0.60-1.20); Globulin, Blood 3.2 g/dL (2.2-4.0); Glucose, Blood 124.0 mg/dL (70-99); Magnesium, Blood 1.5 mg/dL (1.6-2.4); Phosphorus, Blood 3.2 mg/dL (2.5-4.9); Potassium, Blood 4.4 mmol/L (3.5-5.5); Sodium, Blood 138.0 mmol/L (136-145); Total Protein, Blood 6.8 g/dL (6.4-8.2)
[2025-10-01 07:28] VITALS: BP 134/80
[2025-10-01] MEDS ORDERED: Magnesium Sulf 2 GM/Water 50ML 50 ML IV SCH (08:00)
[2025-10-01 08:49] VITALS: BP 125/72
--- NOTE | 2025-10-01 08:57 | NUR ---
NOTIFIED DR OF VT. NO SOB ,OR CP . VITAL WNL
[2025-10-01 11:44] VITALS: BP 137/78
== END 2025-10-01 13:58 | disposition home or self-care (01) ==
LOC: ER 16:47 → MEDS 16:48 → PCU 16:48 → MEDS 09-30 11:48 → ENPENDDIS 09-30 12:50 → MEDS 10-01 13:58
PROVIDERS: Student in an Organized Health Care Education/Training Program; ADMIT Student in an Organized Health Care Education/Training Program
DX: N17.9 Acute kidney failure, unspecified (principal); I12.9 Hypertensive chronic kidney disease with stage 1 through stage 4 chronic kidney disease, or unspecified chronic kidney disease; E11.22 Type 2 diabetes mellitus with diabetic chronic kidney disease; N18.9 Chronic kidney disease, unspecified; E87.5 Hyperkalemia; R31.0 Gross hematuria; E87.20 Acidosis, unspecified; I25.10 Atherosclerotic heart disease of native coronary artery without angina pectoris; E78.5 Hyperlipidemia, unspecified; Z79.4 Long term (current) use of insulin; Z79.84 Long term (current) use of oral hypoglycemic drugs; Z79.85 Long-term (current) use of injectable non-insulin antidiabetic drugs; Z79.82 Long term (current) use of aspirin; Z79.899 Other long term (current) drug therapy; Z87.430 Personal history of prostatic dysplasia; Z87.891 Personal history of nicotine dependence; Z88.8 Allergy status to other drugs, medicaments and biological substances
CPT/HCPCS: 36415; 51798; 74177; 80048; 80053; 80069; 81001; 82010; 82550; 82803; 82947; 83036; 83605; 83735; 84100; 84132; 85025; 87040; 93005; 93010; 96361; 96365; 96366; 96374; 96375; 99285-25; A6590; A9270; G0378; J0612; J1815; J2405; J3475; J7030; J7120; Q9967